=== PATIENT | female | born 1940 | race American Indian/Alaskan Native ===

== ENCOUNTER 2018-12-19 10:55 | Day surgery (SDC) | payer MEDICARE ==
[~2018-12-19 10:55] MED LIST: ANCEF/STERILE WATER 2 GM/20 ML 2 GM/20 ML SYRINGE IV NR; NACL 0.9% 1000 ML 1,000 ML IV SCH
[2018-12-19 12:24] LABS: Basophils % (Auto) 0.3 % (0.0-1.8); Eosinophils # (Auto) 0.1 K/mm3 (0.0-0.4); Eosinophils % (Auto) 0.9 % (0.0-4.3); Hematocrit 32.8 % (30.3-42.9); Lymphocytes # (Auto) 0.8 K/mm3 (1.2-5.4); Lymphocytes % (Auto) 10.3 % (13.4-35.0); Mean Corpuscular HGB Conc 34 % (30-34); Mean Corpuscular Volume 92 fl (79-97); Monocytes # (Auto) 0.8 K/mm3 (0.0-0.8); Monocytes % (Auto) 10.5 % (0.0-7.3); Platelet Count 233 K/mm3 (140-440); Red Blood Count 3.59 M/mm3 (3.65-5.03); Red Cell Distribution Width 15.4 % (13.2-15.2)
[2018-12-19 12:35] LABS: INR 0.93 (0.87-1.13)
[2018-12-19 12:36] LABS: BUN/Creatinine Ratio 35; Blood Urea Nitrogen 35 mg/dL (7-17); Calcium 10.4 mg/dL (8.4-10.2); Hemolysis Index 4; Partial Thromboplastin Time 29.5 Sec. (24.2-36.6)
[2018-12-19] MEDS ORDERED: NACL 0.9% 500 ML 0 ML ONE (13:35)
[2018-12-19] MEDS ORDERED: HEPARIN/NS 5000 UNIT/500ML(CATH LAB) 1,500 ML IR ONE (13:35)
[2018-12-19] MEDS ORDERED: XYLOCAINE 2% INFILTRATI ONE (13:35)
[2018-12-19] MEDS ORDERED: ANCEF/STERILE WATER 2 GM/20 ML 2 GM/20 ML SYRINGE IV ONE (13:35)
[2018-12-19] MEDS: SUBLIMAZE ONE ×7 (14:04→14:52)
[2018-12-19] MEDS: VERSED ONE ×7 (14:04→15:02)
[2018-12-19] MEDS: HEPARIN 10,000 UNITS/10 ML ONE ×2 (14:20→15:05)
[2018-12-19] MEDS ORDERED: BENADRYL ONE (14:32)
[2018-12-19] MEDS ORDERED: SUBLIMAZE ONE (14:55)
[2018-12-19] MEDS ORDERED: VERSED ONE (14:55)
--- NOTE | 2018-12-19 16:13 | Post Operative Note ---
Pre-op diagnosis: PVD with rest pain Post-op diagnosis: same Findings: Severely calcified right common iliac artery and superficial femoral artery, right external iliac artery all successfully treated with a combination of shockwave angioplasty and directional atherectomy Procedure: #1 percutaneous atherectomy with shockwave angioplasty right common femoral artery and superficial femoral artery #2 percutaneous shockwave angioplasty of the right external iliac artery separate lesion #3 ultrasound-guided cannulation left common femoral artery Anesthesia: other (moderate sedation 85 minutes) Surgeon: TRE FERGUSON Estimated blood loss: minimal Pathology: none Condition: stable Disposition: same day
--- NOTE | 2018-12-19 16:19 | Short Stay Summary ---
Short Stay Documentation Date of service: 12/19/18 Narrative H&P: Admitted to the chemical laboratory tester for outpatient percutaneous revascularization of the right leg - History H&P: obtained from office - Allergies and Medications Current Medications: Allergies No Known Allergies Allergy (Verified 03/26/14 07:08) Home Medications Medication Instructions Recorded Confirmed Last Taken Type Atorvastatin [Lipitor] 40 mg PO HS 03/26/14 12/19/18 12/18/18 History 40mg Brinzolamide/Brimonidine Tart 1 drop OU BID 03/26/14 12/19/18 12/19/18 09:00 History [Simbrinza 1%-0.2% Eye Drops] 1 drop Losartan Potassium 100 mg PO QDAY 03/26/14 12/19/18 12/19/18 09:00 History 100mg Loteprednol Etabonate [Lotemax 1 drop OD DAILY 03/26/14 12/19/18 12/19/18 09:00 History 0.5%] 1 drop Spironolactone [Aldactone] 25 mg PO QDAY 03/26/14 12/19/18 12/19/18 09:00 History 25mg Travoprost [Travatan Z 0.004%] 1 drop OU QHS 03/26/14 12/19/18 12/18/18 History 1 drop cloNIDine [Catapres] 0.1 mg PO HS 03/26/14 12/19/18 12/19/18 09:00 History 0.1mg Chlorthalidone 50 mg PO DAILY 12/19/18 12/19/18 12/19/18 09:00 History Multivitamin/Iron/Folic Acid 1 tab PO DAILY 12/19/18 12/19/18 12/18/18 History [Centrum Adults Tablet] 1 tab Ranitidine HCl [Zantac] 300 mg PO HS 12/19/18 12/19/18 12/18/18 History 300mg Active Medications Sodium Chloride (Nacl 0.9% 1000 Ml) 1,000 mls @ 42 mls/hr IV DIRECT MARIBEL Last Admin: 12/19/18 13:34 Dose: 42 mls/hr Documented by: Cefazolin Sodium (Ancef/Sterile Water 2 Gm/20 Ml) 2 gm in 20 mls @ 80 mls/hr IV PREOP NR; Protocol Stop: 12/19/18 23:59 Last Admin: 12/19/18 14:00 Dose: 20 mls Documented by: - Brief post op/procedure progress note Date of procedure: 12/19/18 Pre-op diagnosis: peripheral vascular disease with rest pain right foot Post-op diagnosis: same Procedure: Severely calcified right common iliac artery and superficial femoral artery, right external iliac artery all successfully treated with a combination of shockwave angioplasty and directional atherectomy Procedure: #1 percutaneous atherectomy with shockwave angioplasty right common femoral artery and superficial femoral artery #2 percutaneous shockwave angioplasty of the right external iliac artery separate lesion #3 ultrasound-guided cannulation left common femoral artery Anesthesia: other (moderate sedation 85 minutes) Surgeon: TRE FERGUSON Estimated blood loss: minimal Pathology: none Condition: stable Disposition: same day - Hospital course Hospital course: Unremarkable - Disposition Condition at discharge: Good Disposition: [id number] TO HOME OR SELFCARE - Discharge Diagnoses (1) 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
--- NOTE | 2018-12-19 16:22 | Operative Report ---
Operative Report Operative Report: Note dictated by me and then deleated by [employer] (not me)and now unrecoverable. Will attempt to redictate at some time in the future when I can find the time to do so. May be a few days before that happens so no point in asking me to completed sooner
[2018-12-19] MEDS ORDERED: NORCO 5/325 PO ONE (16:58)
[2018-12-19 18:28] VITALS: BP 159/60
--- NOTE | 2018-12-20 11:49 | Operative Report ---
Operative Report Operative Report: Date of procedure: 12/19/2018 Pre-operative diagnosis: Peripheral vascular disease with resting ischemia right foot Post-operative diagnosis: Same Procedure name(s): #1 percutaneous atherectomy with shockwave angioplasty right common femoral artery and superficial femoral artery #2 percutaneous shockwave angioplasty of the right external iliac artery separate lesion #3 ultrasound- guided cannulation left common femoral artery Surgeon: Rhys Arzate MD Patrol Mother: None Anesthesia: Moderate sedation 85 minutes EBL: Minimal Specimen(s): None Complications: None Findings: Severe calcific preocclusive stenosis of the right common femoral artery and proximal superficial femoral artery, previously unappreciated greater than 70% stenosis of the mid left external iliac artery. All stenotic lesions successfully treated with significant improvement of blood flow and relief of pain. Procedure: Patient supine position after adequate levels of moderate sedation was obtained the left groin was then prepped and draped using standard sterile technique. A sound was used to identify the patent left common femoral artery and to identify areas of calcium free vessel. Ultrasound was used then to direct the microneedle through anesthetized skin and one of the soft areas and successfully cannulate the common femoral artery. I upsized to a 5 Polish introducer and subsequently upsized to a 7 Polish Surveyor destination sheath and catheter advantage wire was used to cannulate and access the contralateral iliac system. When the wire had difficulty passing through an area of the external iliac artery we noted there was significant calcium on the floor and I checked the contrast which suggested a 60-70% irregular stenosis at that level. I was ultimately able to manipulate the wire and the sheath across that area. Contrast was injected from the distal external iliac delineating the high-grade preocclusive heavily calcified irregular plaque in the common femoral artery and origin of the superficial femoral artery. The advantage wire was manipulated through this area and passed into the popliteal artery. Through a quick cross catheter advanced to core 14 wire to the same destination. She was heparinized. A 7 mm shockwave angioplasty balloon was then passed into the common femoral artery stenosis with the balloon just shy of the orifice of the superficial femoral artery. A total of 240 pulses of energy were applied in the common femoral artery in a segments 30 pulses each beginning at 2 junaid and ultimately ending at 4 junaid of balloon insufflation. Repeat contrast injection showed reopening of the common femoral artery but severe residual stenosis at the superficial femoral artery orifice which was anticipated. An [employer] One directional atherectomy device was advanced over the speartacore wire and used to treat the remaining stenotic lesion. This area was posted with a 5 x 60 balloon. Resultant angiography showed complete resolution of the stenosis and excellent flow distally which was confirmed by distal angiography. No emboliz ation was identified. I then retracted the sheath into the common iliac artery and the remaining 60 pulses of aqueous therapy was applied to the calcified iliac lesion followed by posting with a 6 balloon. As resulted in resolution of that iliac lesion. Flow was dramatically improved into the leg. We then backed the sheath and guidewires out and replaced the sheath with the 6 Angio-Seal which was used for hemostatic closure on the left. Patient's Doppler signals dramatically increased in the foot whether previously were unobtainable and the patient noted significant decrease in pain and improved temperature. Patient was removed to the recovery area in stable condition and significantly improved condition.
== END 2018-12-19 18:44 | disposition home or self-care (01) ==
LOC: CATHLABREC 10:55 → CATH 10:55 → CATHLABREC 18:44
PROVIDERS: ATTEND Surgery Vascular Surgery
DX: I70.221 Atherosclerosis of native arteries of extremities with rest pain, right leg (principal); I70.312 Atherosclerosis of unspecified type of bypass graft(s) of the extremities with intermittent claudication, left leg; E78.00 Pure hypercholesterolemia, unspecified; J44.9 Chronic obstructive pulmonary disease, unspecified; G47.30 Sleep apnea, unspecified; E66.9 Obesity, unspecified; M19.90 Unspecified osteoarthritis, unspecified site; Z79.899 Other long term (current) drug therapy; Z87.891 Personal history of nicotine dependence; Z98.41 Cataract extraction status, right eye; Z98.42 Cataract extraction status, left eye; Z90.49 Acquired absence of other specified parts of digestive tract; Z90.710 Acquired absence of both cervix and uterus; Z85.41 Personal history of malignant neoplasm of cervix uteri; Z86.2 Personal history of diseases of the blood and blood-forming organs and certain disorders involving the immune mechanism; Z82.49 Family history of ischemic heart disease and other diseases of the circulatory system
CPT/HCPCS: 36415; 37220; 37225; 75710; 76937; 80048; 85025; 85610; 85730; 99156; 99157; C1714; C1725; C1760; C1769; C1887; J0690; J1200; J1644; J2250; J3010; J7030; J7040; Q9967